=== PATIENT | female | born 1990 | race Caucasian/White ===

== ENCOUNTER 2022-09-05 11:05 | Emergency (ER) | payer SELFPAY ==
[~2022-09-05] VITALS: Ht 162.6 cm; Wt 61.0 kg
[2022-09-05 11:11] VITALS: BP 102/70
[2022-09-05 13:01] LABS: CHLORIDE 106 mEq/L (98-107)
[2022-09-05 13:02] LABS: BASOPHILS % 0.7 % (0.0-2.0); EOSINOPHILS % 2.5 % (0.0-5.0); HEMATOCRIT. 38.5 % (36.0-48.0); HEMOGLOBIN. 13.2 g/dL (12.0-16.0); LYMPHOCYTES % 31.9 % (20.0-50.0); MEAN CORPUSCULAR HEMOGLOBIN 30.8 pg (28.0-32.0); MEAN CORPUSCULAR VOLUME 89.9 fL (81.0-99.0); MONOCYTES % 7.9 % (2.0-8.0); PLATELET 307 x1000/uL (130-400); RED BLOOD CELL COUNT 4.28 mill/uL (4.2-5.4); RED CELL DISTRIBUTION WIDTH 15.2 % (11.6-14.6)
[2022-09-05 13:04] LABS: HCG SCREEN NEGATIVE
[2022-09-05 13:09] LABS: ETHANOL BLOOD < 10 mg/dL (-10)
== END 2022-09-05 13:14 | disposition home or self-care (01) ==
LOC: ER 11:05
DX: R45.6 Violent behavior (principal); F10.129 Alcohol abuse with intoxication, unspecified; Y90.0 Blood alcohol level of less than 20 mg/100 ml
CPT/HCPCS: 36415; 80048; 80307; 80320; 80329; 84703; 85025; 99283; G0480